=== PATIENT | male | born 1970 | race Caucasian/White ===

== ENCOUNTER → 2019-08-14 | Day surgery (SDC) | payer OTHER ==
[~2019-08-14] MED LIST: DESFLURANE 240 ML BTL INH ONE; DEXAMETHASONE PHOS 24 MG/ML 10ML VIAL ONE; KETOROLAC TROMETHAMINE 30 MG/ML VIAL ONE; MIDAZOLAM HCL 2 MG/2 ML VIAL ONE; ONDANSETRON HCL INJ 2MG/ML 2ML 2 MG/ML VIAL ONE; PROPOFOL IV EMULSION 10 MG/ML 20 ML VIAL ONE; VYVANSE70 MG PO
[2019-08-14 09:55] VITALS: BP 114/85
--- NOTE | 2019-08-14 16:37 | Operative Report ---
DATE OF PROCEDURE: 08/14/2019 SURGEON: John Sam MD CHIEF COMPLAINT: Left-sided sensory hearing loss. POSTOPERATIVE DIAGNOSIS: Left-sided sensory hearing loss. OPERATIVE PROCEDURES: Left myringotomy tube with Decadron to the left middle ear cleft, examination under anesthesia on the right ear. ANESTHESIA: Anesthesiology group. INDICATIONS: This 48-year-old male has a gradual onset of hearing loss in the left ear over the past two years. The patient has been treated with systemic steroid antibiotics with no improvement. Audiogram showed the patient has severe sensorineural hearing loss with poor discrimination on the left ear. He has a high-frequency moderate sensory hearing loss on the right. His speech discrimination on the right side was normal. MRI of the skull base that was done was negative. It was decided that left myringotomy tube with Decadron and other necessary procedure will be beneficial for him. DESCRIPTION OF PROCEDURE: The patient was taken to the operating room, put under general anesthesia. A LMA airway created. The left ear was examined. The ear canal was debrided. Myringotomy was done in anterior-inferior quadrant. No effusion was noted in the middle ear cleft. 1 mL of Decadron 24 mg/mL was inserted instilled into the middle ear. The right ear was examined. The ear canal was debrided. No abnormality was noted. The TM was not disturbed. The patient tolerated the above procedure well with minimal blood loss. He was able to be transferred to recovery room in stable condition. John Sam MD DK/MODL /[id number]
--- NOTE | 2019-08-15 04:25 | Pre Op History & Physical ---
CHIEF COMPLAINT: Left sudden sensorineural hearing loss for 2-1/2 years. HISTORY OF PRESENT ILLNESS: This 48-year-old male with decreased hearing in the left ear about two years ago. He has bilateral tinnitus. He cannot remember the incidents of ear problem, how this came about. The problem was gradual in onset. The patient denies any recent upper respiratory tract infection or history of autoimmune problem. There is no family history of hearing loss. The patient denies any vertigo. He denies any change in hearing on the right side. He has no previous surgery to the ear. The patient has an audiogram that was done, which showed in September of 2018. The patient has [id number][id number] high-frequency sensorineural loss in the right ear with profound sensorineural hearing loss in the left. The patient has speech discrimination of 28% on the left side and 80% on the right. The patient had an MRI of the skull base, which showed negative IAC and negative problem with the brain. The patient has been treated with prednisone p.o., which was his own choice over the past few months. The patient has not been very compliant with regarding followup. The patient finally returned to the office in July of this year for further management. REVIEW OF SYSTEMS: System review showed no recent cardiovascular, respiratory, or GI problem. PAST MEDICAL HISTORY: The patient has no significant medical problem. PAST SURGICAL HISTORY: The patient had previous carpal tunnel in the left hand and vasectomy. ALLERGIES: HE HAS NO KNOWN ALLERGY TO MEDICATION. MEDICATIONS: He is on Vyvanse. SOCIAL HISTORY: He smokes about half a pack a day. He is a nondrinker. FAMILY HISTORY: Noncontributory. PHYSICAL EXAMINATION: VITAL SIGNS: On examination, the patient's vital signs were within normal limits. HEENT: Ears exam showed normal tympanic membrane bilaterally. Nasal exam show septal spur on the left side about 20%. Oropharynx and oral cavity show 2+ tonsils bilaterally with no exudate or debris. He has Mallampati level II. NECK: Showed no lymph node or thyroid palpable. CHEST: Showed good air entry bilaterally. CARDIOVASCULAR: Showed S1, S2. No murmur noted. ASSESSMENT AND PLAN: Mr. Owusu has left hearing loss over the past 2-1/2 years. Since sudden sensorineural hearing loss, an autoimmune problem cannot be ruled out. The patient has not been very compliant in terms of followup. His condition has been resistant to conservative therapy, but the suggested treatment is left myringotomy and tubes with Decadron installation into the left ear and other necessary procedure. Complication of procedure includes, but not limited to bleeding, infection, TM perforation, persistent drainage in the ear, hearing loss, persistent recurrence of the problem. The alternate will be continue observation, continue antibiotic therapy, and systemic steroid therapy. The patient has elected to undergo surgical procedure. MD LOLLY Mckinney/MODL /[id number]
== END | disposition home or self-care (01) ==
LOC: OR 06:07
PROVIDERS: ATTEND Otolaryngology Otolaryngology/Facial Plastic Surgery
DX: H90.3 Sensorineural hearing loss, bilateral (principal); H93.13 Tinnitus, bilateral; F17.210 Nicotine dependence, cigarettes, uncomplicated
CPT/HCPCS: 69399; 69436; 93005; J1885; J2250; J2405; J2704

== ENCOUNTER → 2021-11-10 | Day surgery (SDC) | payer BC ==
[~2021-11-10] MED LIST changes: +ACETAMINOPHEN-1 EAC4 PO; +BACITRACIN ZINC 15 GM OINT ONE; +BUPIVACAINE HCL 0.5% INJ 30 ML VIAL INJ ONE; -DESFLURANE 240 ML BTL INH ONE; -DEXAMETHASONE PHOS 24 MG/ML 10ML VIAL ONE; +DEXAMETHASONE SOD PHOS INJ 4 MG/ML SDV ONE; +FENTANYL CITRATE/PF 100MCG/2 ML INJ ONE; +LIDOCAINE HCL 2% LOCAL INJ 5 ML SDV VIAL INJ ONE; +ONE DAILY FOR1 EAC1 PO; +POVIDONE IODINE 0.05% 0.05 % ML PO ONE; +SEVOFLURANE INHAL SOLN 250 ML PEN BTL ONE; +SODIUM CHLORIDE 0.9% 50ML 50 ML ONE
[2021-11-10 08:10] VITALS: BP 133/89
== END | disposition home or self-care (01) ==
LOC: OR 05:28
PROVIDERS: ATTEND Plastic Surgery
DX: G56.01 Carpal tunnel syndrome, right upper limb (principal); M65.831 Other synovitis and tenosynovitis, right forearm; M10.9 Gout, unspecified; F98.8 Other specified behavioral and emotional disorders with onset usually occurring in childhood and adolescence; Z87.891 Personal history of nicotine dependence; Z01.810 Encounter for preprocedural cardiovascular examination; Z01.818 Encounter for other preprocedural examination; Z79.899 Other long term (current) drug therapy
CPT/HCPCS: 71046; 93005; J0690; J1100; J1885; J2001; J2250; J2405; J3010